=== PATIENT | male | born 1940 | race Caucasian/White ===

== ENCOUNTER 2019-01-29 09:30 | Inpatient (IN) | payer MEDICARE ==
[~2019-01-29] VITALS: Ht 177.8 cm; Wt 90.2 kg
[~2019-01-29 09:30] MED LIST: CLIN300C9 PO; IBUP-2353 PO
[2019-01-29 10:04] LABS: BASOPHILS % (AUTO) 0.6 % (0.0-5.0); EOSINOPHILS % (AUTO) 3.1 % (0.0-8.0); HEMATOCRIT 39.3 % (42-54); LYMPHOCYTES % (AUTO) 22.2 % (21.0-51.0); MEAN CORPUSCULAR HEMOGLOBIN 30.6 pg (27.0-33.0); MEAN CORPUSCULAR HGB CONC 32.7 g/dL (32.0-36.0); MEAN CORPUSCULAR VOLUME 93.7 fL (79-99); MONOCYTES % (AUTO) 8.3 % (3.0-13.0); NEUTROPHILS % (AUTO) 65.8 % (40.0-77.0); PLATELET COUNT (AUTO) 300 K/uL (130-400); RED BLOOD CELL COUNT(AUTO) 4.19 MIL/uL (4.50-6.20); RED CELL DISTRIBUTION WIDTH 15.6 % (11.0-15.5); WHITE BLOOD COUNT (AUTO) 7.6 K/uL (4.8-10.8)
[2019-01-29 10:17] LABS: INR 0.96 (0.85-1.15); PARTIAL THROMBOPLASTIN TIME 28.9 SEC (26.3-35.5); PROTHROMBIN TIME 10.1 SEC (9.6-11.6)
[2019-01-29 10:19] LABS: ALBUMIN 3.4 g/dL (3.5-5.0); BILIRUBIN,TOTAL 0.5 mg/dL (0.2-1.0); TOTAL PROTEIN, SERUM 7.3 g/dL (6.0-8.3)
[2019-01-29 11:58] LABS: APPEARANCE,URINE CLEAR (CLEAR); BILIRUBIN,URINE NEGATIVE (NEGATIVE); COLOR,URINE YELLOW (YELLOW); GLUCOSE, URINE (UA) NEGATIVE (NEGATIVE); KETONES,URINE NEGATIVE (NEGATIVE); LEUKOCYTE ESTERASE ,URINE TRACE (NEGATIVE); NITRATE,URINE NEGATIVE (NEGATIVE); OCCULT BLOOD,URINE TRACE-INTACT (NEGATIVE); PH,URINE 7.5 (5.0-8.0); PROTEIN,URINE NEGATIVE (NEGATIVE); UROBILINOGEN,URINE 0.2 mg/dL (0.2-1.0)
[2019-01-29 12:07] LABS: AMPHET/METH SCREEN,URINE NEGATIVE (NEGATIVE); BARBITURATE SCREEN, URINE NEGATIVE (NEGATIVE); BENZODIAZEPINES SCREEN,URINE NEGATIVE (NEGATIVE); CANNABINOID SCREEN,URINE NEGATIVE (NEGATIVE); COCAINE SCREEN,URINE NEGATIVE (NEGATIVE); OPIATE SCREEN,URINE NEGATIVE (NEGATIVE); PHENCYCLIDINE SCREEN,URINE NEGATIVE (NEGATIVE)
[2019-01-29 12:08] LABS: BACTERIA,URINE Rare /HPF (None Seen); RBC,URINE 0-1 /HPF (0-1); SQUAMOUS EPITHELIAL CELL,UR Rare /HPF (0-2); WBC,URINE 0-1 /HPF (0-1)
[2019-01-29] MEDS ORDERED: ACETAMINOPHEN 325 MG TAB PO PRN ×2 (18:00)
[2019-01-29] MEDS ORDERED: ONDANSETRON HCL 4 MG/2 ML VIAL IV PRN (18:00)
[2019-01-29 18:28] LABS: HEMOGLOBIN A1C 6.3 % (4.0-6.0)
[2019-01-29] MEDS ORDERED: HYDRALAZINE HCL 20 MG/ML VIAL ONE (19:42)
[2019-01-29] MEDS: INSULIN HUMULIN R 100 UNIT/ML 3ML SQ SCH (21:00)
[2019-01-29 21:46] VITALS: BP 149/89
[2019-01-29] MEDS: AMLODIPINE BESYLATE 5 MG TAB PO SCH (23:13)
[2019-01-29] MEDS: METOPROLOL TARTRATE 25 MG TAB PO SCH (23:13)
[2019-01-29] MEDS: FAMOTIDINE/PF 20 MG/2 ML VIAL IV SCH (23:13)
[2019-01-29] MEDS: SODIUM CHLORIDE 0.9% 1000ML 1,000 ML IV SCH (23:14)
--- NOTE | 2019-01-29 23:31 | NUR ---
Confusion/Altered Mental Patient confused, altered mental status. Not alert to time or place. Patient did not bring home Meds and spouse left home prior to Tele arrival. Pending to complete full adult physical assessment. Will relay information to shift change a.m. nurse.
[2019-01-29 23:42] VITALS: BP 143/79
[2019-01-30 03:24] VITALS: BP 140/74
[2019-01-30] MEDS: SODIUM CHLORIDE 0.9% 1000ML 1,000 ML IV SCH ×3 (03:47→23:00)
[2019-01-30 04:32] LABS: THYROID STIMULATING HORMONE 3.82 uIU/mL (0.36-3.74)
[2019-01-30] MEDS: INSULIN HUMULIN R 100 UNIT/ML 3ML SQ SCH ×4 (07:30→21:00)
[2019-01-30 08:04] VITALS: BP 139/67
[2019-01-30] MEDS: FAMOTIDINE/PF 20 MG/2 ML VIAL IV SCH ×2 (10:55→21:00)
[2019-01-30] MEDS: ASPIRIN 81MG TAB.CHEW PO SCH (10:58)
[2019-01-30] MEDS: AMLODIPINE BESYLATE 5 MG TAB PO SCH (10:58)
[2019-01-30] MEDS: METOPROLOL TARTRATE 25 MG TAB PO SCH ×2 (10:58→21:00)
[2019-01-30] MEDS: ENOXAPARIN SODIUM 40 MG/0.4 ML SYRINGE SQ SCH (10:58)
[2019-01-30] MEDS: METFORMIN HCL 500 MG TABLET PO SCH ×2 (10:58→17:00)
[2019-01-30] MEDS: GLIPIZIDE 5 MG TABLET PO SCH (10:59)
--- NOTE | 2019-01-30 11:20 | NUR ---
PT IS UNCOOPERATIVE AND REFUSING MEDS AND CARE. WILL NOT COOPERATE WITH STAFF. INFORMED HIM FREQUENTLY WITH PLAN OF CARE BUT STILL REFUSES TO KEEP IV ON ,TELPAK ON, OR EVEN TAKE MEDS. I SPOKE WITH DR CUENCA AND INFORMED HIM OF PATIENTS AGITATION AND RESTLESSNESS. ATIVAN ORDERED. HE HAS BEEN CONFUSED AND HAS NOT SLEPT. IS FINDING IT HARD TO CARE FOR HIM ALSO.
[2019-01-30] MEDS ORDERED: LORAZEPAM 2 MG/ML 1 ML VIAL ONE (11:22)
[2019-01-30] MEDS ORDERED: LORAZEPAM 2 MG/ML 1 ML VIAL IM SCH (11:30)
[2019-01-30 11:47] VITALS: BP 141/69
--- NOTE | 2019-01-30 13:43 | NUR ---
BETITO DAMICO. RECOMMEND HOLD EVALUATION AT THIS TIME SECONDARY TO Pt SLEEPING HEAVILY SECONDARY TO S/P MEDICATION PROVIDED. ROUGH RICE GRADER WILL FOLLOW UP WITH Pt FOR EVALUATION. Addendum: 01/30/19 at 1345 by SARAH XIONG, [facility] Amended: Links added.
--- NOTE | 2019-01-30 14:25 | NUR ---
PT IS NOW RESTING QUIETLY. HE STILL WILL NOT LET ME PLACE TELPAK ON OR REATTACH IVF
--- NOTE | 2019-01-30 14:50 | NUR ---
11:30 PER JUVENCIO KEATING TO HOLD PT EVAL TODAY DUE TO PATIENT IS VERY AGITATED. WILL ATTEMPT TO SEE PATIENT 01/31/2019. Addendum: 01/30/19 at 1452 by PABLO ULRICH PT PT Amended: Links added.
--- NOTE | 2019-01-30 15:09 | NUR ---
DC PLAN VISITED WITH PATIENT. PATIENT SLEEPING. AMS IN CHART. NOT IN ROOM WILL CONTINUE TO FOLLOW. Addendum: 01/30/19 at 1510 by VJ RYAN RN CM Amended: Links added.
[2019-01-30 16:18] VITALS: BP 162/73
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
--- NOTE | 2019-01-30 17:45 | NUR ---
DR CUENCA NOTIFIED WITH PATIENTS AGGRESSIVE BEHAVIORS. ORDERS RECEIVED.
[2019-01-30] MEDS: HALOPERIDOL LACTATE 5 MG/ML VIAL IM PRN (17:56)
[2019-01-30] MEDS: DiphenhydrAMINE HCL 50 MG/ML VIAL IM PRN (17:57)
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
[2019-01-30 19:47] VITALS: BP 157/70
[2019-01-30] MEDS ORDERED: METF-444 PO (20:36)
[2019-01-30] MEDS ORDERED: ALLO300T2 PO (20:36)
[2019-01-30] MEDS ORDERED: GLIP2.5T17 PO (20:36)
[2019-01-30] MEDS ORDERED: AEC81 PO (20:36)
[2019-01-30] MEDS ORDERED: SERT50TA12 PO (20:36)
[2019-01-30] MEDS ORDERED: LOSA100T58 PO (20:36)
[2019-01-30] MEDS ORDERED: DICL100T85 PO (20:36)
[2019-01-30] MEDS ORDERED: ROSU10TA28 PO (20:36)
[2019-01-30 23:45] VITALS: BP 154/53
[2019-01-31 04:21] VITALS: BP 129/59
[2019-01-31 04:39] LABS: BASOPHILS % (AUTO) 0.6 % (0.0-5.0); EOSINOPHILS % (AUTO) 2.7 % (0.0-8.0); LYMPHOCYTES % (AUTO) 19.1 % (21.0-51.0); MEAN CORPUSCULAR HEMOGLOBIN 31.5 pg (27.0-33.0); MEAN CORPUSCULAR HGB CONC 33.5 g/dL (32.0-36.0); MEAN CORPUSCULAR VOLUME 93.8 fL (79-99); MONOCYTES % (AUTO) 9.8 % (3.0-13.0); NEUTROPHILS % (AUTO) 67.8 % (40.0-77.0); NUCLEATED RED BLOOD CELLS 0.1 % (0.0-0.19); PLATELET COUNT (AUTO) 279 K/uL (130-400); RED BLOOD CELL COUNT(AUTO) 3.83 MIL/uL (4.50-6.20); RED CELL DISTRIBUTION WIDTH 15.6 % (11.0-15.5); WHITE BLOOD COUNT (AUTO) 7.6 K/uL (4.8-10.8)
[2019-01-31 04:50] LABS: CREATININE 0.9 mg/dL (0.5-1.5); POTASSIUM 4.3 mmol/L (3.5-5.1)
[2019-01-31] MEDS: GLIPIZIDE 5 MG TABLET PO SCH (06:51)
[2019-01-31] MEDS: INSULIN HUMULIN R 100 UNIT/ML 3ML SQ SCH ×4 (06:51→21:00)
[2019-01-31 07:00] VITALS: BP 146/79
[2019-01-31] MEDS: METFORMIN HCL 500 MG TABLET PO SCH ×2 (08:00→17:11)
[2019-01-31] MEDS: ENOXAPARIN SODIUM 40 MG/0.4 ML SYRINGE SQ SCH (09:00)
[2019-01-31] MEDS: FAMOTIDINE/PF 20 MG/2 ML VIAL IV SCH ×3 (09:00→21:15)
[2019-01-31] MEDS: SODIUM CHLORIDE 0.9% 1000ML 1,000 ML IV SCH ×2 (09:47→19:47)
[2019-01-31] MEDS: AMLODIPINE BESYLATE 5 MG TAB PO SCH (10:55)
[2019-01-31] MEDS: LOSARTAN 50 MG TABLET PO SCH (10:55)
[2019-01-31] MEDS: METOPROLOL TARTRATE 25 MG TAB PO SCH ×2 (10:56→21:15)
[2019-01-31] MEDS: ALLOPURINOL 300 MG TABLET PO SCH (10:56)
[2019-01-31] MEDS: ASPIRIN 81MG TAB.CHEW PO SCH (10:56)
[2019-01-31] MEDS: SERTRALINE HCL 50 MG TABLET PO SCH (10:56)
[2019-01-31 11:45] VITALS: BP 157/75
--- NOTE | 2019-01-31 13:21 | NUR ---
DC PLAN VISITED WITH PATIENT SON AND SPOUSE. PATIENT SLEEPING AND A LITTLE CONFUSED. GAVE LIST OF IN NETWORK FACILITIES. [facility] SIGNED FOR [facility]. INFO SENT PENDING EVAL AND FOR PATIENT TO BE OF 1:1. Addendum: 01/31/19 at 1324 by VJ RYAN RN CM Amended: Links added.
--- NOTE | 2019-01-31 13:23 | NUR ---
DC PLAN PATIENT HAS A WALKER AND HOME HEALTH NURSE ONCE A WEEK THROUGH [facility]. NO OTHER DME OR SERVICES AT THIS TIME. Addendum: 01/31/19 at 1324 by VJ RYAN RN CM Amended: Links added.
--- NOTE | 2019-01-31 14:46 | NUR ---
DYSPHAGIA EVAL COMPLETE. -S/S OF ASPIRATION. RECOMMEND REGULAR, THIN LIQUID DIET; PILLS WHOLE WITH LIQUIDS. PATIENT INFORMATION: Pt IS A 78 Y.O. MALE REFERRED FOR A BEDSIDE DYSPHAGIA EVALUATION SECONDARY TO R/O SILENT ASPIRATION. Pt AAOX2 AND COOPERATIVE DURING THE EVALUATION. Pt WITH ONE TO ONE SITTER AT THIS TIME. SON AND PRESENT AT BEDSIDE. Pt CURRENTLY ADMITTED SECONDARY TO HYPERTENSIVE URGENCY, R/O TIA. Pt HAS A PAST MEDICAL HISTORY SIGNIFICANT FOR ESSENTIAL HYPERTENSION, DMII, MIXED HYPERLIPIDEMIA, GOUT ARTHRITIS, AND HERNIA REPAIR. EVALUATION: SWALLOW FUNCTION AND EFFICIENCY WITHIN FUNCTIONAL LIMITS. ORAL MOTOR STRENGTH, COORDINATION, AND ROM WITHIN FUNCTIONAL LIMITS. LARYNGEAL ELEVATION/EXCURSION STRONG WITH TIMELY PHARYNGEAL RESPONSE. NO OVERT SIGNS OR SYMPTOMS OF ASPIRATION PRESENT AT BEDSIDE. VOCAL QUALITY CLEAR WITH NO THROAT CLEAR OR COUGH RESPONSE PRESENT. RECOMMENDATIONS: 1. REGULAR TEXTURE, THIN LIQUID DIET; PILLS WHOLE WITH LIQUIDS. 2. COMPENSATORY STRATEGIES (PROPHYLAXIS): *SEATED AT 90 DEGREE ANGLE G-CODES SWALLOWING: [id number] Addendum: 01/31/19 at [address] Amended: Links added.
[2019-01-31 15:26] VITALS: BP 158/74
[2019-01-31 20:05] VITALS: BP 152/77
[2019-01-31 23:00] VITALS: BP 149/59
[2019-02-01] MEDS: DiphenhydrAMINE HCL 50 MG/ML VIAL IM PRN ×2 (01:09→19:41)
[2019-02-01] MEDS: HALOPERIDOL LACTATE 5 MG/ML VIAL IM PRN ×2 (02:12→18:54)
[2019-02-01 07:00] VITALS: BP 167/88
[2019-02-01] MEDS: INSULIN HUMULIN R 100 UNIT/ML 3ML SQ SCH ×4 (07:30→21:00)
[2019-02-01] MEDS: ENOXAPARIN SODIUM 40 MG/0.4 ML SYRINGE SQ SCH (09:00)
[2019-02-01] MEDS: METOPROLOL TARTRATE 25 MG TAB PO SCH ×2 (10:00→21:00)
[2019-02-01] MEDS: AMLODIPINE BESYLATE 5 MG TAB PO SCH (10:00)
[2019-02-01] MEDS: SERTRALINE HCL 50 MG TABLET PO SCH (10:00)
[2019-02-01] MEDS: LOSARTAN 50 MG TABLET PO SCH (10:00)
[2019-02-01] MEDS: ASPIRIN 81MG TAB.CHEW PO SCH (10:00)
[2019-02-01] MEDS: ALLOPURINOL 300 MG TABLET PO SCH (10:00)
[2019-02-01] MEDS: METFORMIN HCL 500 MG TABLET PO SCH ×2 (10:01→17:29)
[2019-02-01] MEDS: GLIPIZIDE 5 MG TABLET PO SCH (10:01)
[2019-02-01] MEDS: FAMOTIDINE/PF 20 MG/2 ML VIAL IV SCH ×2 (10:04→21:10)
--- NOTE | 2019-02-01 10:05 | NUR ---
DR. Terri ZAPATA IN ROOM SPEAKING WITH PT.'S SPOUSE AND SON AT BEDSIDE RE:PLAN OF CARE AND EXPLAINING TREATMENT OPTIONS.
[2019-02-01] MEDS ORDERED: CHLO500T3 PO (10:17)
[2019-02-01 11:00] VITALS: BP 130/74
--- NOTE | 2019-02-01 14:31 | NUR ---
DC PLAN SPOKE TO JOSEPH REGARDING ACCEPTANCE SAID STILL TRYING TO GET A HOLD OF ADMINISTRATION TO SEE IF THEY WILL ACCEPT PATIENT SINCE HE HAS BEHAVIORAL ISSUES. Addendum: 02/01/19 at 1433 by VJ RYAN RN CM Amended: Links added.
[2019-02-01] MEDS: SODIUM CHLORIDE 0.9% 1000ML 1,000 ML IV SCH (15:10)
[2019-02-01 16:00] VITALS: BP 118/64
[2019-02-01] MEDS ORDERED: CHLORZOXAZONE 500 MG PO PRN (17:00)
[2019-02-01 19:00] VITALS: BP_SYST 124; BP_SYST 130; BP_DIAS 70; BP_DIAS 75
[2019-02-02] MEDS: SODIUM CHLORIDE 0.9% 1000ML 1,000 ML IV SCH ×2 (01:47→11:47)
[2019-02-02 04:41] LABS: BASOPHILS % (AUTO) 0.3 % (0.0-5.0); EOSINOPHILS % (AUTO) 1.8 % (0.0-8.0); HEMATOCRIT 35.2 % (42-54); LYMPHOCYTES % (AUTO) 15.2 % (21.0-51.0); MEAN CORPUSCULAR HEMOGLOBIN 31.3 pg (27.0-33.0); MEAN CORPUSCULAR HGB CONC 33.3 g/dL (32.0-36.0); MONOCYTES % (AUTO) 10.3 % (3.0-13.0); NEUTROPHILS % (AUTO) 72.4 % (40.0-77.0); PLATELET COUNT (AUTO) 252 K/uL (130-400); RED BLOOD CELL COUNT(AUTO) 3.74 MIL/uL (4.50-6.20); RED CELL DISTRIBUTION WIDTH 16.2 % (11.0-15.5); WHITE BLOOD COUNT (AUTO) 7.7 K/uL (4.8-10.8)
[2019-02-02 04:44] LABS: POTASSIUM 3.7 mmol/L (3.5-5.1)
[2019-02-02 07:00] VITALS: BP 144/84
[2019-02-02] MEDS: INSULIN HUMULIN R 100 UNIT/ML 3ML SQ SCH ×4 (07:30→20:34)
[2019-02-02] MEDS: ASPIRIN 81MG TAB.CHEW PO SCH (10:30)
[2019-02-02] MEDS: SERTRALINE HCL 50 MG TABLET PO SCH (10:30)
[2019-02-02] MEDS: METOPROLOL TARTRATE 25 MG TAB PO SCH ×2 (10:30→20:29)
[2019-02-02] MEDS: AMLODIPINE BESYLATE 5 MG TAB PO SCH (10:30)
[2019-02-02] MEDS: ALLOPURINOL 300 MG TABLET PO SCH (10:30)
[2019-02-02] MEDS: GLIPIZIDE 5 MG TABLET PO SCH (10:31)
[2019-02-02] MEDS: LOSARTAN 50 MG TABLET PO SCH (10:31)
[2019-02-02] MEDS: METFORMIN HCL 500 MG TABLET PO SCH ×2 (10:33→16:42)
[2019-02-02] MEDS: FAMOTIDINE/PF 20 MG/2 ML VIAL IV SCH ×2 (10:35→20:28)
[2019-02-02] MEDS: ENOXAPARIN SODIUM 40 MG/0.4 ML SYRINGE SQ SCH (10:42)
[2019-02-02 11:00] VITALS: BP 159/84
[2019-02-02 16:00] VITALS: BP 145/54
[2019-02-02] MEDS: HALOPERIDOL LACTATE 5 MG/ML VIAL IM PRN (16:43)
[2019-02-02] MEDS: DiphenhydrAMINE HCL 50 MG/ML VIAL IM PRN (18:32)
[2019-02-02 19:37] VITALS: BP 164/78
[2019-02-03] VITALS (7 sets, daily range): BP systolic 113–160; BP diastolic 51–93
[2019-02-03] MEDS: GLIPIZIDE 5 MG TABLET PO SCH (06:27)
[2019-02-03] MEDS: INSULIN HUMULIN R 100 UNIT/ML 3ML SQ SCH ×4 (06:28→21:00)
--- NOTE | 2019-02-03 07:03 | NUR ---
ENCOUNTERED PATIENT LAYING ON BED IN A SEMI-RICHMOND'S POSITION WITH NO C/O PAIN NOR SOB. AT BEDSIDE. NEURO CHECK DONE. FULL ASSESSMENT DONE. CALL LIGHT WITHIN REACH. BED AT LOWEST POSITION. 1:1 SITTER AT BEDSIDE.
[2019-02-03] MEDS: SODIUM CHLORIDE 0.9% 1000ML 1,000 ML IV SCH (07:47)
[2019-02-03] MEDS: METFORMIN HCL 500 MG TABLET PO SCH ×2 (08:51→16:08)
[2019-02-03] MEDS: LOSARTAN 50 MG TABLET PO SCH (08:51)
[2019-02-03] MEDS: ASPIRIN 81MG TAB.CHEW PO SCH (08:51)
[2019-02-03] MEDS: ALLOPURINOL 300 MG TABLET PO SCH (08:51)
[2019-02-03] MEDS: AMLODIPINE BESYLATE 5 MG TAB PO SCH (08:51)
[2019-02-03] MEDS: METOPROLOL TARTRATE 25 MG TAB PO SCH ×2 (08:51→20:39)
[2019-02-03] MEDS: SERTRALINE HCL 50 MG TABLET PO SCH (08:51)
[2019-02-03] MEDS: FAMOTIDINE/PF 20 MG/2 ML VIAL IV SCH ×2 (08:52→20:39)
[2019-02-03] MEDS: ENOXAPARIN SODIUM 40 MG/0.4 ML SYRINGE SQ SCH (08:52)
--- NOTE | 2019-02-03 22:53 | NUR ---
Patient is able to state Name and only. Follows commands but is very forgetful. Patient is impulsive, attempts to get out of bed and is currently too weak to ambulate without assistance. Patient can pivot or take a few step bed to chair. Patient denies pain or sob. Currently resting in bed with a sitter at bedside. Will continue Neuro checks q4H.
[2019-02-04 03:19] VITALS: BP 145/74
[2019-02-04 04:02] LABS: BASOPHILS % (AUTO) 0.4 % (0.0-5.0); EOSINOPHILS % (AUTO) 0.9 % (0.0-8.0); HEMATOCRIT 38.6 % (42-54); LYMPHOCYTES % (AUTO) 12.6 % (21.0-51.0); MEAN CORPUSCULAR HEMOGLOBIN 31.1 pg (27.0-33.0); MEAN CORPUSCULAR VOLUME 94.4 fL (79-99); MONOCYTES % (AUTO) 8.2 % (3.0-13.0); NEUTROPHILS % (AUTO) 77.9 % (40.0-77.0); PLATELET COUNT (AUTO) 287 K/uL (130-400); RED BLOOD CELL COUNT(AUTO) 4.09 MIL/uL (4.50-6.20); RED CELL DISTRIBUTION WIDTH 15.2 % (11.0-15.5); WHITE BLOOD COUNT (AUTO) 9.2 K/uL (4.8-10.8)
[2019-02-04 04:15] LABS: CREATININE 0.9 mg/dL (0.5-1.5)
[2019-02-04] MEDS: GLIPIZIDE 5 MG TABLET PO SCH (05:18)
[2019-02-04] MEDS: INSULIN HUMULIN R 100 UNIT/ML 3ML SQ SCH ×4 (06:28→21:00)
[2019-02-04 07:30] VITALS: BP 157/75
[2019-02-04] MEDS: METFORMIN HCL 500 MG TABLET PO SCH ×2 (07:43→17:03)
[2019-02-04] MEDS: ASPIRIN 81MG TAB.CHEW PO SCH (07:43)
[2019-02-04] MEDS: AMLODIPINE BESYLATE 5 MG TAB PO SCH (07:43)
[2019-02-04] MEDS: LOSARTAN 50 MG TABLET PO SCH (07:43)
[2019-02-04] MEDS: FAMOTIDINE/PF 20 MG/2 ML VIAL IV SCH ×2 (07:43→20:33)
[2019-02-04] MEDS: METOPROLOL TARTRATE 25 MG TAB PO SCH ×2 (07:43→20:33)
[2019-02-04] MEDS: SERTRALINE HCL 50 MG TABLET PO SCH (07:43)
[2019-02-04] MEDS: ENOXAPARIN SODIUM 40 MG/0.4 ML SYRINGE SQ SCH (07:44)
[2019-02-04] MEDS: ALLOPURINOL 300 MG TABLET PO SCH (07:45)
--- NOTE | 2019-02-04 08:00 | NUR ---
ASSESSMENT PT IS AWAKE AND ALERT, STATES NAME AND WHEN ASKED. SITTING UPRIGHT IN BED, EATING BREAKFAST ON HIS OWN, NO VISIBLE SIGNS OF DISTRESS NOTED. BREATHING PATTERN IS EVEN AND UNLABORED. IS AT BEDSIDE. CALL LIGHT WITHIN REACH.
[2019-02-04 11:11] VITALS: BP 140/63
[2019-02-04 15:29] VITALS: BP 144/62
[2019-02-04 19:15] VITALS: BP 150/70
[2019-02-04 23:10] VITALS: BP 127/57
--- NOTE | 2019-02-05 01:07 | NUR ---
PATIENT RESTING IN BED. DENIES PAIN OR SOB. PATIENT STATES NAME, , YEAR, PRESIDENT. CANNOT RECALL PLACE OR REASON FOR ADMISSION. INTERMITTENT CONFUSION, BECOMES IMPULSIVE AND ATTEMPTS TO GET OUT OF BED ALONE AND PULLS ON IV. PATIENT DOES HAVE A SITTER TO PREVENT FALLS. PATIENT HAD BEEN REFUSING TELE MONITOR. CURRENTLY ALLOWING AND IS IN SR.
[2019-02-05 03:19] VITALS: BP 164/76
[2019-02-05] MEDS: GLIPIZIDE 5 MG TABLET PO SCH (06:25)
[2019-02-05] MEDS: INSULIN HUMULIN R 100 UNIT/ML 3ML SQ SCH ×4 (06:26→21:00)
[2019-02-05 07:46] VITALS: BP 140/74
--- NOTE | 2019-02-05 08:30 | NUR ---
AM ASSESSMENT PT LAYING IN BED, HOB ELEVATED 30 DEGREES, RESTING. 1:1 SITTER. ORIENTED TO SELF ONLY. CONFUSED PHRASES. NO SOB. NO DISTRESS NOTED. NO CHEST PAIN OR DISCOMFORT. NO PALPITATIONS. REFUSING TELEMETRY MONITORING. NO N/V. NO DIARRHEA. UP TO CHAIR W/ASSISTANCE. GBW. PT PENDING TO HAVE HPH SCAN TMRW BY IR. INSTRUCTED TO CALL FOR ASSISTANCE. CALL VICKI W/IN REACH.
[2019-02-05] MEDS: METOPROLOL TARTRATE 25 MG TAB PO SCH ×2 (09:40→22:08)
[2019-02-05] MEDS: LOSARTAN 50 MG TABLET PO SCH (09:40)
[2019-02-05] MEDS: AMLODIPINE BESYLATE 5 MG TAB PO SCH (09:40)
[2019-02-05] MEDS: ALLOPURINOL 300 MG TABLET PO SCH (09:40)
[2019-02-05] MEDS: ASPIRIN 81MG TAB.CHEW PO SCH (09:40)
[2019-02-05] MEDS: METFORMIN HCL 500 MG TABLET PO SCH ×2 (09:40→16:25)
[2019-02-05] MEDS: SERTRALINE HCL 50 MG TABLET PO SCH (09:40)
[2019-02-05] MEDS: ENOXAPARIN SODIUM 40 MG/0.4 ML SYRINGE SQ SCH (09:41)
[2019-02-05] MEDS: FAMOTIDINE 20MG TAB 20 MG TAB PO SCH ×2 (09:52→22:08)
--- NOTE | 2019-02-05 11:26 | NUR ---
FOLLOW-UP Pt SEEN TAKING MEDICATIONS WITH NO DIFFICULTY. Pt TAKING THEM ONE BY ONE. NO OVERT S/S OF ASPIRATION REPORTED BY NURSE AT THIS TIME. Addendum: 02/05/19 at 1129 by SARAH XIONG, [facility] Amended: Links added.
--- NOTE | 2019-02-05 11:44 | NUR ---
DC PLAN REFERRAL HAD BEEN SENT TO [facility]. BUT DUE TO 1:1 SITTER AND SAYING PATIENT AGGRESSIVE FACILITY IS HESITANT. DR. ZAPATA WOULD ALSO LIKE TO WAIT FOR SPINAL TAP AND FOR NM TEST FOR HYDROCEPHELUS. Addendum: 02/05/19 at 1147 by VJ RYAN RN CM Amended: Links added.
[2019-02-05 11:56] VITALS: BP 101/50
[2019-02-05 15:38] VITALS: BP 152/65
[2019-02-05 19:44] VITALS: BP 133/73
[2019-02-05 23:19] VITALS: BP 157/66
[2019-02-06] VITALS (13 sets, daily range): BP systolic 102–160; BP diastolic 55–82
[2019-02-06 03:44] LABS: HEMATOCRIT 36.3 % (42-54); MEAN CORPUSCULAR HEMOGLOBIN 31.3 pg (27.0-33.0); MEAN CORPUSCULAR HGB CONC 33.4 g/dL (32.0-36.0); MEAN CORPUSCULAR VOLUME 93.8 fL (79-99); PLATELET COUNT (AUTO) 288 K/uL (130-400); RED BLOOD CELL COUNT(AUTO) 3.87 MIL/uL (4.50-6.20); RED CELL DISTRIBUTION WIDTH 15.4 % (11.0-15.5); WHITE BLOOD COUNT (AUTO) 8.1 K/uL (4.8-10.8)
[2019-02-06 03:53] LABS: INR 0.95 (0.85-1.15); PARTIAL THROMBOPLASTIN TIME 33.2 SEC (26.3-35.5)
[2019-02-06] MEDS: INSULIN HUMULIN R 100 UNIT/ML 3ML SQ SCH ×4 (06:24→21:00)
[2019-02-06] MEDS: GLIPIZIDE 5 MG TABLET PO SCH (07:30)
--- NOTE | 2019-02-06 07:30 | NUR ---
AM ASSESSMENT PT LAYING IN BED, HOB ELEVATED 30 DEGREES, RESTING. 1:1 SITTER. SPOUSE @ BEDSIDE. ORIENTED TO SELF ONLY. NO SOB. NO DISTRESS NOTED. NO NEWSPAPER PHOTO EDITOR, PT REFUSING. NO N/V. NO DIARRHEA. NPO STATUS REINFORCED. PT TO HAVE NPH SCAN & LUMBAR PUNCTURE TODAY. INSTRUCTED TO CALL FOR ASSISTANCE. CALL VICKI W/IN REACH.
[2019-02-06] MEDS: METFORMIN HCL 500 MG TABLET PO SCH ×2 (08:00→16:29)
[2019-02-06] MEDS: FAMOTIDINE 20MG TAB 20 MG TAB PO SCH ×2 (09:00→21:17)
[2019-02-06] MEDS: SERTRALINE HCL 50 MG TABLET PO SCH (09:00)
[2019-02-06] MEDS: ALLOPURINOL 300 MG TABLET PO SCH (09:00)
[2019-02-06] MEDS: ASPIRIN 81MG TAB.CHEW PO SCH (09:00)
[2019-02-06] MEDS: ENOXAPARIN SODIUM 40 MG/0.4 ML SYRINGE SQ SCH (09:00)
--- NOTE | 2019-02-06 10:50 | NUR ---
STATUS PT TAKEN TO RADIOLOGY FOR NPH SCAN & LUMBAR PUNCTURE VIA BED. SPOUSE @ BEDSIDE.
[2019-02-06] MEDS ORDERED: IOPAMIDOL 10 ML VIAL ONE (10:59)
--- NOTE | 2019-02-06 15:11 | NUR ---
Ntr Screen for LOS X 8 days. Pt dx for htn emergency. pt w/ episodes of confusion. pmhx: dm, htn, hyperlipidemia, gout, meds: pepcid, lovenox, insulin ss, glucophage, glucotrol, norvasc. LBM: 02/05. skin: Right arm skin tear. diet: heart healthy w/ 50-100% po intake labs: gluc 141, cl 99, bun 26, hgb a1c 6.3, alb 3.4 Pt w/ good po intake and mild PEM noted. No ntr concerns at this time. Cont c current diet. RDN to monitor po intake and ntr indices. RDN to f/u in 5-7 days.
[2019-02-06] MEDS: METOPROLOL TARTRATE 25 MG TAB PO SCH ×2 (16:28→21:17)
[2019-02-06] MEDS: LOSARTAN 50 MG TABLET PO SCH (16:29)
[2019-02-06] MEDS: AMLODIPINE BESYLATE 5 MG TAB PO SCH (16:29)
[2019-02-07 03:37] VITALS: BP 156/61
[2019-02-07] MEDS: INSULIN HUMULIN R 100 UNIT/ML 3ML SQ SCH ×4 (06:11→21:00)
[2019-02-07] MEDS: GLIPIZIDE 5 MG TABLET PO SCH (06:11)
[2019-02-07 07:27] VITALS: BP 147/74
[2019-02-07] MEDS: ASPIRIN 81MG TAB.CHEW PO SCH (08:02)
[2019-02-07] MEDS: ALLOPURINOL 300 MG TABLET PO SCH (08:02)
[2019-02-07] MEDS: ENOXAPARIN SODIUM 40 MG/0.4 ML SYRINGE SQ SCH (08:03)
[2019-02-07] MEDS: SERTRALINE HCL 50 MG TABLET PO SCH (08:03)
[2019-02-07] MEDS: METFORMIN HCL 500 MG TABLET PO SCH ×2 (08:03→16:46)
[2019-02-07] MEDS: FAMOTIDINE 20MG TAB 20 MG TAB PO SCH ×2 (08:03→20:28)
[2019-02-07] MEDS: LOSARTAN 50 MG TABLET PO SCH (08:03)
[2019-02-07] MEDS: METOPROLOL TARTRATE 25 MG TAB PO SCH ×2 (08:03→20:27)
[2019-02-07] MEDS: AMLODIPINE BESYLATE 5 MG TAB PO SCH (08:03)
--- NOTE | 2019-02-07 11:51 | NUR ---
JOSEPH MURILLO FROM [facility] IS HERE TO EVALUATE PATIENT. SHE SAID THAT PATIENT IS ACCEPTED IN FACILITY AND WILL BE ABLE TO GO UNLESS THERE IS A MAJOR SET-BACK. PATIENT IS STILL PENDING SECOND PART OF CISTERNOGRAM AND IF POSITIVE FOR HYDROCEPHALUS, AND SON WOULD LIKE SHUNT TO BE PLACED IN HOSPITAL. JOSEPH WILL BE FOLLOWING UP ON THIS PATIENT.
[2019-02-07 11:55] VITALS: BP 126/65
[2019-02-07 15:57] VITALS: BP 133/58
--- NOTE | 2019-02-07 16:28 | NUR ---
PATIENT WAS TRANSPORTED TO [facility] FOR 2ND PART OF CISTERNOGRAM.
[2019-02-07 20:19] VITALS: BP 137/82
[2019-02-08 00:06] VITALS: BP 144/62
[2019-02-08 04:47] VITALS: BP 121/65
[2019-02-08] MEDS: GLIPIZIDE 5 MG TABLET PO SCH (06:03)
[2019-02-08] MEDS: INSULIN HUMULIN R 100 UNIT/ML 3ML SQ SCH ×4 (06:08→22:16)
[2019-02-08 07:39] VITALS: BP 150/66
[2019-02-08] MEDS: METFORMIN HCL 500 MG TABLET PO SCH ×2 (07:50→16:58)
[2019-02-08] MEDS: ENOXAPARIN SODIUM 40 MG/0.4 ML SYRINGE SQ SCH (07:50)
[2019-02-08] MEDS: LOSARTAN 50 MG TABLET PO SCH (07:51)
[2019-02-08] MEDS: METOPROLOL TARTRATE 25 MG TAB PO SCH ×2 (07:51→20:16)
[2019-02-08] MEDS: ASPIRIN 81MG TAB.CHEW PO SCH (07:51)
[2019-02-08] MEDS: AMLODIPINE BESYLATE 5 MG TAB PO SCH (07:51)
[2019-02-08] MEDS: SERTRALINE HCL 50 MG TABLET PO SCH (07:51)
[2019-02-08] MEDS: FAMOTIDINE 20MG TAB 20 MG TAB PO SCH ×2 (07:51→20:16)
[2019-02-08] MEDS: ALLOPURINOL 300 MG TABLET PO SCH (07:51)
[2019-02-08 11:17] VITALS: BP 123/58
[2019-02-08 17:05] VITALS: BP 151/58
[2019-02-08] MEDS ORDERED: COLCHICINE 0.6 MG TABLET PO SCH (18:30)
[2019-02-08 20:04] VITALS: BP 150/58
[2019-02-09] VITALS: BP 147/62
[2019-02-09 05:00] VITALS: BP 148/68
--- NOTE | 2019-02-09 05:00 | NUR ---
PT HAS BEEN STABLE, MINIMAL CONFUSION. CALM. EASILY REDIRECTED AND REORIENTED. NEW IV STARTED TO LEFT FOREARM. 20G. PATENT. ABLE TO TAKE MEDICATION DIRECTED.
[2019-02-09] MEDS: INSULIN HUMULIN R 100 UNIT/ML 3ML SQ SCH ×4 (06:02→20:53)
[2019-02-09] MEDS: GLIPIZIDE 5 MG TABLET PO SCH (06:09)
[2019-02-09 07:00] VITALS: BP 153/84
[2019-02-09] MEDS: METFORMIN HCL 500 MG TABLET PO SCH ×2 (08:46→17:00)
[2019-02-09] MEDS: COLCHICINE 0.6 MG TABLET PO SCH (08:47)
[2019-02-09] MEDS: LOSARTAN 50 MG TABLET PO SCH (08:47)
[2019-02-09] MEDS: ALLOPURINOL 300 MG TABLET PO SCH (08:47)
[2019-02-09] MEDS: ASPIRIN 81MG TAB.CHEW PO SCH (08:47)
[2019-02-09] MEDS: METOPROLOL TARTRATE 25 MG TAB PO SCH ×2 (08:47→20:52)
[2019-02-09] MEDS: FAMOTIDINE 20MG TAB 20 MG TAB PO SCH ×2 (08:47→20:52)
[2019-02-09] MEDS: SERTRALINE HCL 50 MG TABLET PO SCH (08:47)
[2019-02-09] MEDS: AMLODIPINE BESYLATE 5 MG TAB PO SCH (08:47)
[2019-02-09] MEDS: ENOXAPARIN SODIUM 40 MG/0.4 ML SYRINGE SQ SCH (08:48)
--- NOTE | 2019-02-09 09:30 | NUR ---
SBAR REPORT HANDED TO MYRANDA HENNING. ALL QUESTIONS WERE ANSWERED.
--- NOTE | 2019-02-09 10:00 | NUR ---
Received patient from PCU, eyes closed and oriented to person. Patient in no distress upon arrival to floor, No sob, no discomfort voiced at this time. no facial droop, PERRLA, confused, follows commands. at bedside.
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
[2019-02-09 12:05] VITALS: BP 154/79
[2019-02-09 16:00] VITALS: BP 160/61
[2019-02-09 20:00] VITALS: BP 136/60
[2019-02-09] MEDS: DiphenhydrAMINE HCL 50 MG/ML VIAL IM PRN (20:53)
[2019-02-10] VITALS (7 sets, daily range): BP systolic 111–183; BP diastolic 60–95
[2019-02-10] MEDS: HYDRALAZINE HCL 20 MG/ML VIAL IV PRN (02:37)
[2019-02-10] MEDS: INSULIN HUMULIN R 100 UNIT/ML 3ML SQ SCH ×4 (04:42→21:00)
[2019-02-10] MEDS: GLIPIZIDE 5 MG TABLET PO SCH (06:02)
[2019-02-10] MEDS: METFORMIN HCL 500 MG TABLET PO SCH ×2 (09:16→16:43)
[2019-02-10] MEDS: COLCHICINE 0.6 MG TABLET PO SCH (09:17)
[2019-02-10] MEDS: METOPROLOL TARTRATE 25 MG TAB PO SCH ×2 (09:17→21:53)
[2019-02-10] MEDS: AMLODIPINE BESYLATE 5 MG TAB PO SCH (09:17)
[2019-02-10] MEDS: FAMOTIDINE 20MG TAB 20 MG TAB PO SCH ×2 (09:17→21:53)
[2019-02-10] MEDS: ALLOPURINOL 300 MG TABLET PO SCH (09:17)
[2019-02-10] MEDS: LOSARTAN 50 MG TABLET PO SCH (09:17)
[2019-02-10] MEDS: SERTRALINE HCL 50 MG TABLET PO SCH (09:17)
[2019-02-10] MEDS: ENOXAPARIN SODIUM 40 MG/0.4 ML SYRINGE SQ SCH (09:18)
[2019-02-10] MEDS: ASPIRIN 81MG TAB.CHEW PO SCH (09:18)
--- NOTE | 2019-02-10 14:50 | NUR ---
Up with PT Patient was ambulated in room by physical therapy staff and sat in chair. Tolerated without complaint. Also assisted to bathroom without complaint.
[2019-02-10 17:46] LABS: CRP QUANTITATIVE 58.6 mg/L (0.00-9.0)
[2019-02-10] MEDS ORDERED: 1/2 NORMAL SALINE 1,000 ML IV ONE (22:04)
[2019-02-11] VITALS (8 sets, daily range): BP systolic 123–198; BP diastolic 60–89
[2019-02-11] MEDS: HYDRALAZINE HCL 20 MG/ML VIAL IV PRN (04:23)
[2019-02-11 06:08] LABS: MEAN CORPUSCULAR HEMOGLOBIN 30.6 pg (27.0-33.0); MEAN CORPUSCULAR HGB CONC 32.2 g/dL (32.0-36.0); PLATELET COUNT (AUTO) 536 K/uL (130-400); RED BLOOD CELL COUNT(AUTO) 4.21 MIL/uL (4.50-6.20); RED CELL DISTRIBUTION WIDTH 14.9 % (11.0-15.5)
[2019-02-11 06:14] LABS: CREATININE 1.3 mg/dL (0.5-1.5); POTASSIUM 3.4 mmol/L (3.5-5.1)
[2019-02-11 07:06] LABS: EOSINOPHILS % (MANUAL) 4 % (1-6); LYMPHOCYTES % (MANUAL) 32 % (22-44); MAN.DIFF COMMENT-IMPRESSION MANUAL DIFFERENTIAL; MONOCYTES % (MANUAL) 8 % (2-9); SEGMENTED NEUTROPHILS % 56 % (40-70)
[2019-02-11 07:07] LABS: PLATELET MORPHOLOGY COMMENT INCREASED
[2019-02-11] MEDS: INSULIN HUMULIN R 100 UNIT/ML 3ML SQ SCH ×4 (08:41→21:00)
[2019-02-11] MEDS: ENOXAPARIN SODIUM 40 MG/0.4 ML SYRINGE SQ SCH (11:05)
[2019-02-11] MEDS: LOSARTAN 50 MG TABLET PO SCH (11:05)
[2019-02-11] MEDS: ALLOPURINOL 300 MG TABLET PO SCH (11:06)
[2019-02-11] MEDS: FAMOTIDINE 20MG TAB 20 MG TAB PO SCH ×2 (11:06→22:20)
[2019-02-11] MEDS: METOPROLOL TARTRATE 25 MG TAB PO SCH ×2 (11:06→22:21)
[2019-02-11] MEDS: GLIPIZIDE 5 MG TABLET PO SCH (11:06)
[2019-02-11] MEDS: SERTRALINE HCL 50 MG TABLET PO SCH (11:06)
[2019-02-11] MEDS: COLCHICINE 0.6 MG TABLET PO SCH (11:07)
[2019-02-11] MEDS: AMLODIPINE BESYLATE 5 MG TAB PO SCH (11:07)
[2019-02-11] MEDS: METFORMIN HCL 500 MG TABLET PO SCH ×2 (11:10→18:06)
[2019-02-11] MEDS: ASPIRIN 81MG TAB.CHEW PO SCH (11:10)
--- NOTE | 2019-02-11 14:27 | NUR ---
SNF F/U CM spoke to Claribel with [facility]. States patient is still pending acceptance. CM notified Claribel that pt is a potential discharge for today. Also updated that pt does not have a sitter. Addendum: 02/11/19 at 1433 by ANUM MCNAIR CM Amended: Links added.
--- NOTE | 2019-02-11 16:44 | NUR ---
[facility] ACCEPTED CM spoke to Claribel with [facility]. States pt is accepted. CM notified charge nurse Beatrice that pt has been accepted.
[2019-02-11] MEDS ORDERED: POTASSIUM CHLORIDE 20MEQ/100ML 100 ML IV PRN (17:15)
[2019-02-11] MEDS ORDERED: LIDOCAINE HCL-MPF 1% 2ML VIAL IVP PRN (17:15)
[2019-02-11] MEDS ORDERED: POTASSIUM CHLORIDE 20 MEQ ERTAB PO PRN (17:15)
[2019-02-12 04:34] VITALS: BP 152/67
[2019-02-12] MEDS: INSULIN HUMULIN R 100 UNIT/ML 3ML SQ SCH ×2 (05:34→11:54)
[2019-02-12 08:00] VITALS: BP 154/84
[2019-02-12] MEDS: GLIPIZIDE 5 MG TABLET PO SCH (09:04)
[2019-02-12] MEDS: ASPIRIN 81MG TAB.CHEW PO SCH (09:04)
[2019-02-12] MEDS: SERTRALINE HCL 50 MG TABLET PO SCH (09:04)
[2019-02-12] MEDS: ALLOPURINOL 300 MG TABLET PO SCH (09:04)
[2019-02-12] MEDS: AMLODIPINE BESYLATE 5 MG TAB PO SCH (09:04)
[2019-02-12] MEDS: FAMOTIDINE 20MG TAB 20 MG TAB PO SCH (09:04)
[2019-02-12] MEDS: METOPROLOL TARTRATE 25 MG TAB PO SCH (09:04)
[2019-02-12] MEDS: METFORMIN HCL 500 MG TABLET PO SCH ×2 (09:04→17:27)
[2019-02-12] MEDS: LOSARTAN 50 MG TABLET PO SCH (09:05)
[2019-02-12] MEDS: ENOXAPARIN SODIUM 40 MG/0.4 ML SYRINGE SQ SCH (09:05)
[2019-02-12 11:00] VITALS: BP 97/44
[2019-02-12] MEDS: COLCHICINE 0.6 MG TABLET PO SCH (11:30)
[2019-02-12] MEDS ORDERED: POTASSIUM CHLORIDE 10% ELIXIR 20 MEQ/15 ML UDCUP PO PRN (14:00)
[2019-02-12] MEDS ORDERED: POTASSIUM CHLORIDE 20 MEQ ERTAB PO PRN (14:00)
[2019-02-12] MEDS ORDERED: LIDOCAINE HCL-MPF 1% 2ML VIAL IVP PRN (14:00)
[2019-02-12] MEDS ORDERED: POTASSIUM CHLORIDE 20MEQ/100ML 100 ML IV PRN (14:00)
[2019-02-12] MEDS: POTASSIUM CHLORIDE 10% ELIXIR 20 MEQ/15 ML UDCUP PO PRN ×2 (15:39→17:27)
--- NOTE | 2019-02-12 17:32 | NUR ---
report called to Freddy Resendez LVN of [facility]. all questions are answered patient ready to be discharge.
--- NOTE | 2019-02-12 19:43 | NUR ---
Discharge Note: Pt. fully awake and responsive. 2 of the family member were with the patient. Discharge instructions given by day shift. Discharge per stretcher via EMS to [facility]. No untoward incident happened. Distress / discomfort not noted.
== END 2019-02-12 20:00 | DRG 304 ==
LOC: EDH 09:30 → OBSVTOIN 17:47 → EDHIP 17:47 → 2AH 21:34 → 2DH 01-31 20:19 → 3CH 02-09 10:21
PROVIDERS: ADMIT Internal Medicine; ATTEND Internal Medicine
PROC: 009U3ZX Drainage of Spinal Canal, Percutaneous Approach, Diagnostic (ICD-10-PCS; principal; 2019-02-06)
DX: I16.0 Hypertensive urgency (principal); G93.41 Metabolic encephalopathy; G45.9 Transient cerebral ischemic attack, unspecified; F03.90 Unspecified dementia, unspecified severity, without behavioral disturbance, psychotic disturbance, mood disturbance, and anxiety; E11.9 Type 2 diabetes mellitus without complications; E78.2 Mixed hyperlipidemia; I10 Essential (primary) hypertension; M10.9 Gout, unspecified; R32 Unspecified urinary incontinence; Z87.891 Personal history of nicotine dependence; Z86.73 Personal history of transient ischemic attack (TIA), and cerebral infarction without residual deficits; Z85.820 Personal history of malignant melanoma of skin; Z82.3 Family history of stroke
CPT/HCPCS: 36415; 62270; 70450; 70551; 71045; 78630; 80048; 80053; 80061; 80305; 81001; 82140; 82550; 82607; 82746; 82948; 83036; 83880; 84443; 84484; 84550; 85025; 85027; 85610; 85651; 85730; 86038; 86140; 86215; 86235; 86431; 86592; 92610; 93005; 93880; 97039; A9548; G0378; J0360; J1200; J1630; J1650; J1815; J2060; J3490; J7030

== ENCOUNTER → 2020-01-23 | Outpatient (CLI) | payer MEDICARE ==
[~2020-01-23] MED LIST changes: +AEC81 PO; +ALLO300T2 PO; +CHLO500T3 PO; -CLIN300C9 PO; +DICL100T85 PO; +GLIP2.5T17 PO; -IBUP-2353 PO; +LOSA100T58 PO; +METF-444 PO; +ROSU10TA28 PO; +SERT50TA12 PO
== END | disposition home or self-care (01) ==
LOC: RAH 14:49
PROVIDERS: ATTEND Internal Medicine
DX: I65.23 Occlusion and stenosis of bilateral carotid arteries (principal); I65.21 Occlusion and stenosis of right carotid artery; Z86.73 Personal history of transient ischemic attack (TIA), and cerebral infarction without residual deficits
CPT/HCPCS: 93880

== ENCOUNTER → 2020-02-06 | Outpatient (CLI) | payer MEDICARE ==
[~2020-02-06] MED LIST changes: +GADODIAMIDE 10 MMOL/20 ML VIAL IV ONE
== END | disposition home or self-care (01) ==
LOC: RAH 10:21
PROVIDERS: ATTEND Internal Medicine
DX: G31.9 Degenerative disease of nervous system, unspecified (principal); I67.82 Cerebral ischemia; Z86.73 Personal history of transient ischemic attack (TIA), and cerebral infarction without residual deficits
CPT/HCPCS: 70553; A9579